=== PATIENT | male | born 1955 | race Caucasian/White ===

== ENCOUNTER 2016-08-07 19:09 | Emergency (ER) | payer MEDICARE ==
[~2016-08-07] VITALS: Ht 172.7 cm; Wt 70.0 kg
[~2016-08-07 19:09] MED LIST: CLON.1 PO; DOCU100T9 PO; GABA300C3 PO; IBUP-1116 PO; LISI-363 PO; MELO15 PO; OMEP20TA39 PO; SENN8.6T19 PO; SIMV20 PO; TAMS0.4C4 PO; TRAM50 PO; TYLE500T PO; ZANA4CAP PO
[2016-08-07 19:12] VITALS: BP 94/61; PULSE 60; RESP 20; TEMP 97.4; O2SAT 95
[2016-08-07 19:17] VITALS: BP 94/51
[2016-08-07] MEDS ORDERED: SODIUM CHLOR 0.9% 1000 ML INJ 1,000 ML IV ONE (19:24)
--- NOTE | 2016-08-07 19:29 | PD ---
HPI Chief Complaint: Altered Mental Status Time Seen by Provider: 19:29 Travel History International Travel<30 days: No Contact w/Intl Traveler<30days: No Traveled to known affect area: No History of Present Illness HPI 61-year-old male with a history of hypertension, hyperlipidemia, chronic back pain presents to the emergency room by EMS for evaluation of weakness and hypotension. Per EMS report they were called by the patient's friend. When they arrived on scene the patient was pale, diaphoretic and lethargic. Once they placed him on the stretcher they were able to get a blood pressure reading of 100/60. The patient is complaining of feeling lightheaded, weak and nauseous. He denies any chest pain, shortness of breath, difficulty breathing, vomiting, diarrhea, abdominal pain, bloody stool, black stool, numbness or tingling. The patient states that this has happened to him in the past. He states that he usually has high blood pressure, did take his blood pressure medication today, denies taking any extra pills today. States he has had 2 alcoholic beverages. Denies any drug use. No other complaints. PFSH Past Medical History Cancer: No Cardiovascular Problems: Yes (HTN) High Cholesterol: Yes Endocrine: No Gastrointestinal Disorders: Yes (GERD) Genitourinary: No Hepatitis: No Hiatal Hernia: No Hypertension: Yes Immune Disorder: No Musculoskeletal: Yes (LUMBAR PAIN, PAIN DOWN LEGS) Neurologic: No Psychiatric: No Reproductive: No Respiratory: No Immunizations Current: Yes Tetanus Vaccination: > 5 Years Influenza Vaccination: Yes Past Surgical History Abdominal Surgery: No AICD: No Body Medical Devices: NONE Cardiac Surgery: Yes (ABCESS DRAINAGE ON CHEST) Ear Surgery: No Endocrine Surgery: No Eye Surgery: No Genitourinary Surgery: No Joint Replacement: No Neurologic Surgery: Yes (spinal fusion 10/2015) Oral Surgery: No Pacemaker: No Thoracic Surgery: No Other Surgery: Yes (CYST CHEST AREA 10 YRS AGO) Social History Alcohol Use: Yes (drinks daily) Tobacco Use: Yes (SNUFF) Substance Use: No Allergies-Medications (Allergen,Severity, Reaction): Coded Allergies: Cerebyx (Verified Allergy, Severe, Itching, 08/07/16) Reported Meds & Prescriptions Reported Meds & Active Scripts Active Reported Omeprazole 20 Mg Tab 20 Mg PO DAILY Tizanidine (Tizanidine HCl) 4 Mg Tab 4 Mg PO TID Mobic (Meloxicam) 15 Mg Tab 15 Mg PO DAILY Gabapentin 600 Mg Tab 600 Mg PO TID Lisinopril 20 Mg Tab 20 Mg PO BID Simvastatin 20 Mg Tab 20 Mg PO HS Drisdol (Ergocalciferol) 50,000 Unit Cap 50,000 Units PO Q7D Advil (Ibuprofen) 200 Mg Tab 400 Mg PO Q4H PRN Review of Systems Except as stated in HPI: all other systems reviewed are Neg Physical Exam Narrative GENERAL: Well-nourished and well-developed male patient in no acute distress. SKIN: Pale, cool, diaphoretic. HEAD: Normocephalic and atraumatic. EYES: No injection, drainage, or hyphema noted. PERRLA. EOMI. ENT: No nasal drainage noted. Oropharynx is clear. NECK: Supple and the trachea is midline. CARDIOVASCULAR: Regular rate and rhythm. RESPIRATORY: Breath sounds are equal bilaterally with no accessory muscle use, wheezing, rhonchi, or crackles. GASTROINTESTINAL: Abdomen is soft, non-tender, and nondistended. MUSCULOSKELETAL: No obvious deformities, swelling, cyanosis, or ecchymosis is present throughout the upper and lower extremities. Patient has full range of motion without any signs of neurovascular compromise. NEUROLOGICAL: Awake, alert, and oriented. Normal speech. Global weakness. Cranial nerves are grossly intact. Data Data Last Documented VS Vital Signs Date Time Temp Pulse Resp B/P Pulse Ox O2 Delivery O2 Flow Rate FiO2 08/07/16 21:05 98.1 71 18 112/80 98 Room Air Orders Complete Blood Count With Diff (08/07/16 19:24) Comprehensive Metabolic Panel (08/07/16 19:24) Troponin I (08/07/16 19:24) Act Partial Throm Time (Ptt) (08/07/16 19:24) Prothrombin Time / Inr (Pt) (08/07/16 19:24) Urinalysis - C+S If Indicated (08/07/16 19:24) Chest, Single Ap (08/07/16 19:24) Blood Glucose (08/07/16 19:24) Ecg Monitoring (08/07/16 19:24) Iv Access Insert/Monitor (08/07/16 19:24) Oximetry (08/07/16 19:24) Sodium Chloride 0.9% Flush (Ns Flush) (08/07/16 19:30) Sodium Chlor 0.9% 1000 Ml Inj (Ns 1000 M (08/07/16 19:24) Type And Screen (08/07/16 19:24) Ct Brain W/O Iv Contrast(Rout) (08/07/16 19:29) B-Type Natriuretic Peptide (08/07/16 19:30) Drug Screen, Random Urine (08/07/16 19:48) Alcohol (Ethanol) (08/07/16 19:48) Electrocardiogram (08/07/16 19:21) Sodium Chlor 0.9% 1000 Ml Inj (Ns 1000 M (08/07/16 20:17) Labs Laboratory Tests Test 08/07/16 08/07/16 19:30 21:20 White Blood Count 5.3 TH/MM3 Red Blood Count 3.27 MIL/MM3 Hemoglobin 11.2 GM/DL Hematocrit 32.9 % Mean Corpuscular Volume 100.5 FL Mean Corpuscular Hemoglobin 34.3 PG Mean Corpuscular Hemoglobin 34.1 % Concent Red Cell Distribution Width 13.5 % Platelet Count 151 TH/MM3 Mean Platelet Volume 8.4 FL Neutrophils (%) (Auto) 74.9 % Lymphocytes (%) (Auto) 11.9 % Monocytes (%) (Auto) 12.6 % Eosinophils (%) (Auto) 0.4 % Basophils (%) (Auto) 0.2 % Neutrophils # (Auto) 3.9 TH/MM3 Lymphocytes # (Auto) 0.6 TH/MM3 Monocytes # (Auto) 0.7 TH/MM3 Eosinophils # (Auto) 0.0 TH/MM3 Basophils # (Auto) 0.0 TH/MM3 CBC Comment AUTO DIFF Differential Comment AUTO DIFF CONFIRMED Platelet Estimate LOW Platelet Morphology Comment NORMAL Prothrombin Time 10.7 SEC Prothromb Time International 1.0 RATIO Ratio Activated Partial 26.1 SEC Thromboplast Time Sodium Level 137 MEQ/L Potassium Level 3.4 MEQ/L Chloride Level 100 MEQ/L Carbon Dioxide Level 22.2 MEQ/L Anion Gap 15 MEQ/L Blood Urea Nitrogen 9 MG/DL Creatinine 1.09 MG/DL Estimat Glomerular Filtration 68 ML/MIN Rate Random Glucose 111 MG/DL Calcium Level 7.7 MG/DL Total Bilirubin 0.4 MG/DL Aspartate Amino Transf 89 U/L (AST/SGOT) Alanine Aminotransferase 52 U/L (ALT/SGPT) Alkaline Phosphatase 65 U/L Troponin I LESS THAN 0.02 NG/ML B-Type Natriuretic Peptide 14 PG/ML Total Protein 6.4 GM/DL Albumin 3.0 GM/DL Ethyl Alcohol Level 76 MG/DL Blood Type A POSITIVE Antibody Screen NEGATIVE Urine Color LIGHT-YELLOW Urine Turbidity CLEAR Urine pH 6.5 Urine Specific [place] 1.004 Urine Protein NEG mg/dL Urine Glucose (UA) NEG mg/dL Urine Ketones NEG mg/dL Urine Occult Blood NEG Urine Nitrite NEG Urine Bilirubin NEG Urine Urobilinogen LESS THAN 2.0 MG/DL Urine Leukocyte Esterase NEG Urine WBC LESS THAN 1 /hpf Urine Mucus FEW /lpf Microscopic Urinalysis Comment CULT NOT INDICATED MDM Medical Decision Making Medical Screen Exam Complete: Yes Emergency Medical Condition: Yes Differential Diagnosis Dehydration versus ACS versus heart failure versus renal failure Narrative Course 61-year-old male is brought to the emergency department for evaluation of generalized weakness, lethargy and hypotension. Patient's blood pressure is 94/ 61. Otherwise vital signs are within normal limits. IV access is obtained, labs were drawn and sent. Patient is given IV fluids. EKG shows sinus bradycardia with a ventricular rate of 55 bpm, no acute ST elevations or depressions. CBC shows mild anemia with a hemoglobin of 11.2, 32.9. CMP shows mild hypokalemia with potassium of 3.4. Otherwise unremarkable. Troponin is less than 0.02. EtOH is 76. BNP is 14. Urinalysis shows few mucus. Patient has remained stable and without complaint while here in the emergency department. His blood pressure has improved to 112/80. He reports improvement of symptoms. The patient is now stating that he did take his muscle relaxer and gabapentin shortly before the symptoms started. I suspect that the mixture of alcohol and sedating medications is what caused his syncope and low blood pressure. He is stable for discharge. Advised to follow-up with his PCP. I discussed the case with my attending physician Dr. Oneill who is aware of the patients history, physical examination findings, and treatment plan. Diagnosis Primary Impression: Syncope Qualified Code: R55 - Syncope, unspecified syncope type Referrals: Primary Care Physician Patient Instructions: General Instructions, Syncope (ED) Additional Instructions: Follow-up with your Primary Care Physician. Return to the ED for any acute worsening of symptoms. Med/Other Pt SpecificInfo: No Change to Meds Disposition: 01 DISCHARGE HOME Condition: Stable Alicia Bruce Aug 07, 2016 19:29
[2016-08-07] MEDS ORDERED: SODIUM CHLORIDE 0.9% FLUSH 5 ML FLUSH IVF PRN (19:30)
[2016-08-07 20:02] LABS: AUTOMATED NEUTROPHIL # 3.9 TH/MM3 (1.8-7.7); BASOPHIL % 0.2 % (0.0-2.0); EOSINOPHIL % 0.4 % (0.0-4.0); HEMATOCRIT 32.9 % (39.0-51.0); LYMPH % 11.9 % (9.0-44.0); LYMPHOCYTE # 0.6 TH/MM3 (1.0-4.8); MEAN CELL VOLUME 100.5 FL (80.0-100.0); MEAN CORPUSCULAR HEMOGLOBIN 34.3 PG (27.0-34.0); MEAN CORPUSCULAR HGB CONC 34.1 % (32.0-36.0); MONO % 12.6 % (0.0-8.0); NEUT % 74.9 % (16.0-70.0); PLATELET COUNT 151 TH/MM3 (150-450); RED BLOOD COUNT 3.27 MIL/MM3 (4.50-5.90); RED CELL DISTRIBUTION WIDTH 13.5 % (11.6-17.2); WHITE BLOOD COUNT 5.3 TH/MM3 (4.0-11.0)
[2016-08-07 20:03] LABS: HEMO FLAGS AUTO DIFF
[2016-08-07] MEDS ORDERED: SODIUM CHLOR 0.9% 1000 ML INJ 1,000 ML IV SCH (20:17)
[2016-08-07 20:19] LABS: ANION GAP 15 MEQ/L (5-15); APTT (PATIENT) 26.1 SEC (24.3-30.1); AST (GOT) 89 U/L (15-37); BICARBONATE 22.2 MEQ/L (21.0-32.0); BLOOD UREA NITROGEN 9 MG/DL (7-18); CHLORIDE 100 MEQ/L (98-107); GLOMERULAR FILTRATION RATE 68 ML/MIN (>89); POTASSIUM 3.4 MEQ/L (3.5-5.1); PROTHROMBIN TIME - PATIENT 10.7 SEC (9.8-11.6); SODIUM (NA) 137 MEQ/L (136-145)
[2016-08-07 20:23] LABS: ALKALINE PHOSPHATASE 65 U/L (45-117); ALT (GPT) 52 U/L (12-78); TOTAL BILIRUBIN ADULT 0.4 MG/DL (0.2-1.0)
--- NOTE | 2016-08-07 20:24 | RADRPT ---
EXAM DATE/TIME: 08/07/2016 19:52 [facility] COMPARISON: CHEST SINGLE AP, January 08, 2016, 18:22. INDICATIONS : Syncopal episode. MEDICAL HISTORY : Hypertension. SURGICAL HISTORY : Spinal fusion. ENCOUNTER: Initial ACUITY: 1 day PAIN SCORE: Non-responsive. LOCATION: Bilateral chest FINDINGS: Cardiomegaly. Clear lungs. Osseous structures are intact. CONCLUSION: No acute disease. Marcelo Sotelo MD on August 07, 2016 at 20:23 Board Certified Radiologist. This report was verified electronically.
[2016-08-07 20:31] LABS: PLATELET ESTIMATE SMEAR LOW (NORMAL); PLATELET MORPHOLOGY NORMAL (NORMAL); SCAN/DIFF AUTO DIFF CONFIRMED
[2016-08-07] MEDS ORDERED: GABA600T PO (20:35)
[2016-08-07] MEDS ORDERED: LISI-515 PO (20:35)
[2016-08-07] MEDS ORDERED: TIZA4TAB PO (20:35)
[2016-08-07] MEDS ORDERED: DRIS50002 PO (20:35)
[2016-08-07] MEDS ORDERED: MOBI15TA PO (20:35)
[2016-08-07] MEDS ORDERED: SIMV20TA PO (20:35)
[2016-08-07] MEDS ORDERED: IBUP-988 PO (20:35)
[2016-08-07] MEDS ORDERED: OMEP20TA PO (20:36)
--- NOTE | 2016-08-07 20:41 | RADRPT ---
EXAM DATE/TIME: 08/07/2016 20:24 [facility] COMPARISON: CT BRAIN W/O CONTRAST, December 08, 2015, 17:49. INDICATIONS : Altered mental status. RADIATION DOSE: 39.05 CTDIvol (mGy) MEDICAL HISTORY : Cardiovascular disease. Hypertension. SURGICAL HISTORY : None. ENCOUNTER: Initial ACUITY: 1 day PAIN SCALE: 0/10 LOCATION: cranial TECHNIQUE: Multiple contiguous axial images were obtained of the head. Using automated exposure control and adj ustment of the mA and/or kV according to patient size, radiation dose was kept as low as reasonably a chievable to obtain optimal diagnostic quality images. FINDINGS: Stable mild periventricular white matter disease. No hemorrhage, acute infarct, or mass. Air-fluid le vels in the maxillary sinuses. No fractures. CONCLUSION: Stable appearance of the brain. Marcelo Sotelo MD on August 07, 2016 at 20:39 Board Certified Radiologist. This report was verified electronically.
[2016-08-07 21:05] VITALS: BP 112/80; PULSE 71; RESP 18; TEMP 98.1; O2SAT 98
[2016-08-07 21:40] LABS: BLOOD, URINE NEG (NEG); COMMENT (UR) CULT NOT INDICATED; CULTURE IF INDICATED CULT NOT INDICATED; GLUCOSE,URINE NEG (NEG); KETONE, URINE NEG (NEG); MUCUS URINE FEW /lpf (OCC); NITRITE,URINE NEG (NEG); PH, URINE 6.5 (5.0-8.5); URINE COLOR LIGHT-YELLOW (YELLW/STRAW)
[2016-08-07 21:43] LABS: AMPHETAMINE, URINE NEG (NEG); BARBITURATES, URINE NEG (NEG); COCAINE, URINE NEG (NEG)
--- NOTE | 2016-08-08 13:57 | EKG ---
Date Performed: 08/07/2016 Time Performed: 19:21:24 PTAGE: 61 years EKG: SINUS BRADYCARDIA MODERATE T-WAVE ABNORMALITY, CONSIDER LATERAL ISCHEMIA ABNORMAL ECG PREVIOUS TRACING : 01/08/2016 18.50 DOCTOR: Gordy Alcala Interpretating Date/Time 08/08/2016 13:52:29
== END 2016-08-07 23:04 | disposition home or self-care (01) ==
LOC: NEPE 19:09
DX: R55 Syncope and collapse (principal); I95.9 Hypotension, unspecified; R11.0 Nausea; D64.9 Anemia, unspecified; E87.6 Hypokalemia; R94.31 Abnormal electrocardiogram [ECG] [EKG]; I10 Essential (primary) hypertension; E78.5 Hyperlipidemia, unspecified; Z72.0 Tobacco use; Z87.39 Personal history of other diseases of the musculoskeletal system and connective tissue; Z87.19 Personal history of other diseases of the digestive system
CPT/HCPCS: 70450; 71010; 80053; 80307; 81001; 83880; 84484; 85025; 85610; 85730; 86850; 86900; 86901; 93005; 96360; 99285; J7030

== ENCOUNTER 2016-09-09 10:54 | Emergency (ER) | payer MEDICARE ==
[~2016-09-09] VITALS: Ht 175.3 cm; Wt 80.0 kg
[~2016-09-09 10:54] MED LIST changes: -CLON.1 PO; -DOCU100T9 PO; +DRIS50002 PO; -GABA300C3 PO; +GABA600T PO; -IBUP-1116 PO; +IBUP-988 PO; -LISI-363 PO; +LISI-515 PO; -MELO15 PO; +MOBI15TA PO; +OMEP20TA PO; -OMEP20TA39 PO; -SENN8.6T19 PO; -SIMV20 PO; +SIMV20TA PO; -TAMS0.4C4 PO; +TIZA4TAB PO; -TRAM50 PO; -TYLE500T PO; -ZANA4CAP PO
[2016-09-09 10:56] VITALS: BP 205/120; PULSE 106; RESP 20; TEMP 98.4; O2SAT 98
--- NOTE | 2016-09-09 11:30 | PD ---
HPI Chief Complaint: Injury Time Seen by Provider: 11:21 Travel History International Travel<30 days: No Contact w/Intl Traveler<30days: No Traveled to known affect area: No History of Present Illness HPI Patient is a 61-year-old male presents emergency Department with left ankle injury. Patient was catching baitfish yesterday when he slipped, twisting his left ankle. Notes pain to the lateral aspect of the left ankle with increasing swelling today. He is able ambulate, albeit with some pain and prefers to ambulate with some assistance. No numbness or tingling. PFSH Past Medical History Cancer: No Cardiovascular Problems: Yes High Cholesterol: Yes Endocrine: No Gastrointestinal Disorders: Yes (GERD) Genitourinary: No Hepatitis: No Hiatal Hernia: No Hypertension: Yes Immune Disorder: No Musculoskeletal: Yes (LUMBAR PAIN, PAIN DOWN LEGS) Neurologic: No Psychiatric: No Reproductive: No Respiratory: No Immunizations Current: Yes Past Surgical History Abdominal Surgery: No AICD: No Body Medical Devices: NONE Cardiac Surgery: Yes (ABCESS DRAINAGE ON CHEST) Ear Surgery: No Endocrine Surgery: No Eye Surgery: No Genitourinary Surgery: No Joint Replacement: No Neurologic Surgery: Yes (spinal fusion 10/2015) Oral Surgery: No Pacemaker: No Thoracic Surgery: No Other Surgery: Yes (CYST CHEST AREA 10 YRS AGO) Social History Alcohol Use: Yes (drinks daily) Tobacco Use: Yes (SNUFF) Substance Use: No Allergies-Medications (Allergen,Severity, Reaction): Coded Allergies: Cerebyx (Verified Allergy, Severe, Itching, 08/07/16) Reported Meds & Prescriptions Reported Meds & Active Scripts Active Reported Omeprazole 20 Mg Tab 20 Mg PO DAILY Tizanidine (Tizanidine HCl) 4 Mg Tab 4 Mg PO TID Mobic (Meloxicam) 15 Mg Tab 15 Mg PO DAILY Gabapentin 600 Mg Tab 600 Mg PO TID Lisinopril 20 Mg Tab 20 Mg PO BID Simvastatin 20 Mg Tab 20 Mg PO HS Advil (Ibuprofen) 200 Mg Tab 400 Mg PO Q4H PRN Review of Systems Except as stated in HPI: all other systems reviewed are Neg Physical Exam Narrative GENERAL: Well-appearing male in no acute distress SKIN: Focused skin assessment warm/dry. HEAD: Normocephalic. EYES: No scleral icterus. No injection or drainage. ENT: Mucous membranes pink and moist. CARDIOVASCULAR: Regular rate and rhythm. RESPIRATORY: No accessory muscle use. MUSCULOSKELETAL: Left ankle with swelling over the lateral malleolus and tenderness to palpation over the inferior malleolus. Patient is able to range the ankle fully albeit with pain. No posterior malleoli, medial malleoli, calcaneal or foot pain. Sensation intact. Strength intact. NEUROLOGICAL: Awake and alert. Normal speech. PSYCHIATRIC: Appropriate mood and affect; insight and judgment normal. Data Data Last Documented VS Vital Signs Date Time Temp Pulse Resp B/P Pulse Ox O2 Delivery O2 Flow Rate FiO2 09/09/16 10:56 98.4 106 20 205/120 98 Room Air Orders Ankle, Complete ([id number]) (09/09/16 ) [facility] Medical Decision Making Medical Screen Exam Complete: Yes Emergency Medical Condition: Yes Medical Record Reviewed: Yes Differential Diagnosis 61-year-old male here with left ankle injury. Differential includes ankle sprain, ankle fracture, distal fibular fracture, less likely dislocation clinically. Narrative Course X-ray of the left ankle was obtained and by my read shows no obvious evidence of fracture. Patient was reassured and given instructions for ankle sprain and discharged home. Diagnosis Primary Impression: Left ankle sprain Qualified Code: S93.402A - Sprain of left ankle, unspecified ligament, initial encounter Referrals: Primary Care Physician as needed Additional Instructions: Tylenol, ibuprofen, ice as needed for pain. Med/Other Pt SpecificInfo: No Change to Meds Disposition: 01 DISCHARGE HOME Condition: Stable Sravani Brush MD Sep 09, 2016 11:29
--- NOTE | 2016-09-09 11:51 | RADRPT ---
EXAM DATE/TIME: 09/09/2016 11:26 [facility] COMPARISON: No previous studies available for comparison. INDICATIONS : Fell in a hole yesterday. MEDICAL HISTORY : None. SURGICAL HISTORY : None. ENCOUNTER: Initial ACUITY: 1 day PAIN SCORE: 10/10 LOCATION: Left ankle FINDINGS: No definite fractures, or dislocations are identified. No definite lytic or sclerotic lesion is seen . The joint spaces are well maintained. There are hypertrophic changes involving the talofibular erin nt. IMPRESSION: No definite fracture is identified for technique. KEric Jameson MD on September 09, 2016 at 11:49 Board Certified Radiologist. This report was verified electronically.
== END 2016-09-09 13:09 | disposition home or self-care (01) ==
LOC: NEPD 10:54
DX: S93.402A Sprain of unspecified ligament of left ankle, initial encounter (principal); I10 Essential (primary) hypertension; F17.290 Nicotine dependence, other tobacco product, uncomplicated; W01.0XXA Fall on same level from slipping, tripping and stumbling without subsequent striking against object, initial encounter; Y93.89 Activity, other specified; Y92.89 Other specified places as the place of occurrence of the external cause; Z91.81 History of falling
CPT/HCPCS: 73610; 99283

== ENCOUNTER 2017-03-12 13:18 | Emergency (ER) | payer MEDICARE ==
[~2017-03-12] VITALS: Ht 175.3 cm; Wt 75.0 kg
[~2017-03-12 13:18] MED LIST changes: -DRIS50002 PO
[2017-03-12 13:19] VITALS: BP 127/78; PULSE 101; RESP 20; TEMP 98.5; O2SAT 98
[2017-03-12] MEDS ORDERED: BACT800T5 PO (13:59)
[2017-03-12] MEDS ORDERED: CEPH-460 PO (13:59)
[2017-03-12] MEDS ORDERED: PERM5CRE11 TOPICAL (13:59)
--- NOTE | 2017-03-12 13:59 | PD ---
HPI Chief Complaint: Skin Problem Time Seen by Provider: 13:57 Travel History International Travel<30 days: No Contact w/Intl Traveler<30days: No Traveled to known affect area: No History of Present Illness HPI 61-year-old male presents to the emergency Department with complaint of generalized itchy rash 3 weeks. Denies fever, vomiting. Denies new exposures to lotions, soaps, detergents, medications, foods, environmental exposures. His girlfriend was just seen previously and treated for the same rash. Has tried [id number] antibiotic ointment with no relief of symptoms. Symptoms are mild in severity. Reports alcohol use daily. Patient smells of EtOH. Has no other medical complaints. Allergies to fosphenytoin. No other modifying factors or associated signs and symptoms. PFSH Past Medical History Cancer: No Cardiovascular Problems: Yes High Cholesterol: Yes Endocrine: No Gastrointestinal Disorders: Yes (GERD) Genitourinary: No Hepatitis: No Hiatal Hernia: No Hypertension: Yes Immune Disorder: No Musculoskeletal: Yes (LUMBAR PAIN, PAIN DOWN LEGS) Neurologic: No Psychiatric: No Reproductive: No Respiratory: No Immunizations Current: Yes Past Surgical History Abdominal Surgery: No AICD: No Body Medical Devices: NONE Cardiac Surgery: Yes (ABCESS DRAINAGE ON CHEST) Ear Surgery: No Endocrine Surgery: No Eye Surgery: No Genitourinary Surgery: No Joint Replacement: No Neurologic Surgery: Yes (spinal fusion 10/2015) Oral Surgery: No Pacemaker: No Thoracic Surgery: No Other Surgery: Yes (CYST CHEST AREA 10 YRS AGO) Social History Alcohol Use: Yes (drinks daily) Tobacco Use: Yes (SNUFF) Substance Use: No Allergies-Medications (Allergen,Severity, Reaction): Coded Allergies: fosphenytoin (Unverified Allergy, Severe, Itching, 01/07/17) Reported Meds & Prescriptions Reported Meds & Active Scripts Active Elimite Topical (Permethrin) 5% Cream 1 Applic TOPICAL ONCE Keflex (Cephalexin) 500 Mg Cap 500 Mg PO Q6H 10 Days Bactrim DS (Sulfamethoxazole-Trimethoprim) 800-160 Mg Tab 1 Tab PO BID 10 Days Reported Omeprazole 20 Mg Tab 20 Mg PO DAILY Tizanidine (Tizanidine HCl) 4 Mg Tab 4 Mg PO TID Mobic (Meloxicam) 15 Mg Tab 15 Mg PO DAILY Gabapentin 600 Mg Tab 600 Mg PO TID Lisinopril 20 Mg Tab 20 Mg PO BID Simvastatin 20 Mg Tab 20 Mg PO HS Advil (Ibuprofen) 200 Mg Tab 400 Mg PO Q4H PRN Review of Systems Except as stated in HPI: all other systems reviewed are Neg Physical Exam Narrative GENERAL: Well-nourished, well-developed male patient, in no acute distress; smells of EtOH; afebrile, nontoxic-appearing SKIN: Warm and dry. Generalized erythremic pimple-like rash to waistline of abdomen and back; some areas appear excoriated. No areas with cellulitic process noted. HEAD: Atraumatic. Normocephalic. EYES: Pupils equal and round. No scleral icterus. No injection or drainage. ENT: Mucosa pink and moist. Airway patent. NECK: Trachea midline. CARDIOVASCULAR: Regular rate. RESPIRATORY: No accessory muscle use. GASTROINTESTINAL: Flat. MUSCULOSKELETAL: No obvious deformities. No clubbing. No cyanosis. No edema. NEUROLOGICAL: Awake and alert. Oriented 3. No obvious cranial nerve deficits. Motor grossly within normal limits. Normal speech. PSYCHIATRIC: Appropriate mood and affect; insight and judgment normal. Data Data Last Documented VS Vital Signs Date Time Temp Pulse Resp B/P (MAP) Pulse Ox O2 Delivery O2 Flow Rate FiO2 03/12/17 13:19 98.5 101 20 127/78 (94) 98 Room Air Orders Orders Ed Discharge Order (03/12/17 13:59) [facility] Medical Decision Making Medical Screen Exam Complete: Yes Emergency Medical Condition: Yes Medical Record Reviewed: Yes Differential Diagnosis Bedbug bites, scabies, MRSA, MSSA Narrative Course 61-year-old male physical exam consistent with a rash and other nonspecific skin eruption. Patient is afebrile and nontoxic-appearing. He denies fever, vomiting. Patient smells of EtOH. I will prescribe Elimite cream and treat the patient empirically for possible skin infection with Keflex and Bactrim. Instructed patient to follow-up with dermatology. Keflex, Bactrim, Elimite cream prescribed for home. Instructed patient to follow up with primary care provider. Patient verbalizes understanding and agreement with treatment plan. Patient is medically cleared and stable for discharge. Discussed reasons to return to the emergency department. Patient agrees with treatment plan. The patients vital signs are stable and the patient is stable for outpatient follow- up and treatment. Patient discharged home, stable and in no acute distress. Diagnosis Primary Impression: Rash and other nonspecific skin eruption Referrals: [facility] Concierge Receptionist Primary Care Physician Patient Instructions: Acute Rash (ED), General Instructions, Scabies (ED) Additional Instructions: Complete full course of antibiotics Warm compresses to the affected area Keep area clean and dry Ibuprofen or Tylenol as directed and as needed for pain and inflammation Follow-up with primary care provider Return to emergency department immediately with worsening of symptoms Med/Other Pt SpecificInfo: Prescription(s) given Scripts Permethrin Topical (Elimite Topical) 5% Cream 1 APPLIC TOPICAL ONCE for Scabies, #1 TUBE 1 Refill Prov: Alicia Nesbitt 03/12/17 Cephalexin (Keflex) 500 Mg Cap 500 MG PO Q6H for Infection for 10 Days, #40 CAP 0 Refills Prov: Alicia Nesbitt 03/12/17 Sulfamethoxazole-Trimethoprim (Bactrim DS) 800-160 Mg Tab 1 TAB PO BID for Infection for 10 Days, #20 TAB 0 Refills Prov: Alicia Nesbitt 03/12/17 Disposition: 01 DISCHARGE HOME Condition: Stable Alicia Nesbitt Mar 12, 2017 13:59
== END 2017-03-12 14:45 | disposition home or self-care (01) ==
LOC: NEPK 13:18
DX: R21 Rash and other nonspecific skin eruption (principal); L29.9 Pruritus, unspecified; I10 Essential (primary) hypertension; E78.00 Pure hypercholesterolemia, unspecified; Z72.0 Tobacco use; Z86.79 Personal history of other diseases of the circulatory system; Z87.19 Personal history of other diseases of the digestive system; Z87.39 Personal history of other diseases of the musculoskeletal system and connective tissue
CPT/HCPCS: 99284

== ENCOUNTER 2017-05-07 10:53 | Emergency (ER) | payer MEDICARE ==
[~2017-05-07] VITALS: Ht 175.3 cm; Wt 75.0 kg
[~2017-05-07 10:53] MED LIST changes: +BACT800T5 PO; +CEPH-460 PO; -GABA600T PO; -IBUP-988 PO; -MOBI15TA PO; -OMEP20TA PO; +PERM5CRE11 TOPICAL; -TIZA4TAB PO
[2017-05-07 10:55] VITALS: BP 166/88; PULSE 114; RESP 14; TEMP 98.2; O2SAT 98
--- NOTE | 2017-05-07 11:24 | PD ---
HPI Chief Complaint: Pain: Acute or Chronic Time Seen by Provider: 11:21 Travel History International Travel<30 days: No Contact w/Intl Traveler<30days: No Traveled to known affect area: No History of Present Illness HPI 62 YO M with PMH of chronic back pain and sciatica presents to the ED for evaluation of 03/04 left knee pain. Worsened by weightbearing and certain motions. Patient can identify no acute injury. He denies numbness, tingling, weakness, limitations to range of motion of the extremity. He denies saddle anesthesia or urinary/fecal incontinence. He normally ambulates with a cane. No treatment attempted at home. PFSH Past Medical History Cancer: No Cardiovascular Problems: Yes High Cholesterol: Yes Endocrine: No Gastrointestinal Disorders: Yes (GERD) Genitourinary: No Hepatitis: No Hiatal Hernia: No Hypertension: Yes Immune Disorder: No Musculoskeletal: Yes (LUMBAR PAIN, PAIN DOWN LEGS) Neurologic: No Psychiatric: No Reproductive: No Respiratory: No Immunizations Current: Yes Past Surgical History Abdominal Surgery: No AICD: No Body Medical Devices: NONE Cardiac Surgery: Yes (ABCESS DRAINAGE ON CHEST) Ear Surgery: No Endocrine Surgery: No Eye Surgery: No Genitourinary Surgery: No Joint Replacement: No Neurologic Surgery: Yes (spinal fusion 10/2015) Oral Surgery: No Pacemaker: No Thoracic Surgery: No Other Surgery: Yes (CYST CHEST AREA 10 YRS AGO) Social History Alcohol Use: Yes (drinks daily) Tobacco Use: Yes (SNUFF) Substance Use: No Allergies-Medications (Allergen,Severity, Reaction): Coded Allergies: fosphenytoin (Unverified Allergy, Severe, Itching, 05/07/17) Reported Meds & Prescriptions Reported Meds & Active Scripts Active Ibuprofen 600 Mg Tab 600 Mg PO Q8H PRN Reported Lisinopril 20 Mg Tab 20 Mg PO BID Simvastatin 20 Mg Tab 20 Mg PO HS Review of Systems Except as stated in HPI: all other systems reviewed are Neg Physical Exam Narrative GENERAL: Well-nourished, well-developed white male in no acute distress. SKIN: Focused skin assessment warm/dry. HEAD: Normocephalic. EYES: No scleral icterus. No injection or drainage. NECK: Supple, trachea midline. No JVD or lymphadenopathy. CARDIOVASCULAR: Regular rate and rhythm without murmurs, gallops, or rubs. RESPIRATORY: Breath sounds equal bilaterally. No accessory muscle use. GASTROINTESTINAL: Abdomen soft, non-tender, nondistended. MUSCULOSKELETAL: No cyanosis, or edema. Focused left lower extremity exam: 2+ DP pulse. No erythema, edema, warmth noted. Tenderness to palpation of the medial compartment of the anterior knee. Patient can extend beyond 0 and flex beyond 90. 5/5 strength of dorsal flexion, plantar flexion. Homans sign negative. Her vascular intact. BACK: Nontender without obvious deformity. No CVA tenderness. Data Data Last Documented VS Vital Signs Date Time Temp Pulse Resp B/P (MAP) Pulse Ox O2 Delivery O2 Flow Rate FiO2 05/07/17 12:07 108 16 155/96 (115) 97 Room Air 05/07/17 10:55 98.2 Orders Orders Knee, Complete (4vws) (05/07/17 11:20) Ice/Cold Pack (05/07/17 11:20) Tramadol (Ultram) (05/07/17 11:30) Tramadol (Ultram) (05/07/17 11:39) Ed Discharge Order (05/07/17 12:24) MDM Medical Decision Making Medical Screen Exam Complete: Yes Emergency Medical Condition: Yes Differential Diagnosis Osteoarthritis versus chronic knee pain versus effusion versus sprain versus other Narrative Course 62 YO M with PMH of chronic back pain and sciatica presents to the ED for evaluation of 10 left knee pain. Worsened by weightbearing and certain motions. Patient can identify no acute injury. He denies numbness, tingling, weakness, limitations to range of motion of the extremity. He denies saddle anesthesia or urinary/fecal incontinence. He normally ambulates with a cane. Vitals reviewed. Physical exam reveals a nontoxic-appearing white male in no acute distress. He does have some tenderness of the anterior medial aspect of the left knee but the exam is otherwise unremarkable. X-ray of the knee reveals no acute bony injury. Radiology read. I suspect this is referred pain from his chronic back issues. He is provided a brief course of anti- inflammatories. He is instructed to follow-up with his neurologist, pain management. He indicated understanding of the instructions and is agreeable with the care plan. He is stable and discharged home. Diagnosis Primary Impression: Left medial knee pain Referrals: Erick Rushing MD Patient Instructions: General Instructions, Knee Pain (ED) Additional Instructions: Rest, ice, elevate the extremity. Apply ice no longer than 10-15 minutes per hour a few times a day. 600 mg ibuprofen up to 3 times a day as needed for pain. Return to normal, gentle activity as tolerated. No excessive use, running or jumping until evaluated by orthopedics. Follow up with orthopedist or your primary care provider. Return to the ED for any urgent or emergent medical condition. Med/Other Pt SpecificInfo: Prescription(s) given Scripts Ibuprofen (Ibuprofen) 600 Mg Tab 600 MG PO Q8H Y for PAIN, #15 TAB 0 Refills Prov: Dayna Farr DO 05/07/17 Disposition: 01 DISCHARGE HOME Condition: Stable María Angulo May 07, 2017 11:24
[2017-05-07] MEDS ORDERED: traMADol HCL 50 MG TAB PO ONE (11:30)
[2017-05-07] MEDS ORDERED: traMADol HCL 50 MG TAB ONE (11:39)
--- NOTE | 2017-05-07 12:06 | RADRPT ---
EXAM DATE/TIME: 05/07/2017 11:50 [facility] COMPARISON: No previous studies available for comparison. INDICATIONS : Left knee pain x 2 weeks, no known injury. MEDICAL HISTORY : None. SURGICAL HISTORY : None. ENCOUNTER: Initial ACUITY: 2 weeks PAIN SCORE: 10/10 LOCATION: Left medial knee FINDINGS: Four view examination of the left knee demonstrates no evidence of fracture or dislocation. Bony min eralization is normal. The articular surfaces are intact. The suprapatellar soft tissues have a nor mal configuration. CONCLUSION: No acute disease. Tushar Hahn MD on May 07, 2017 at 12:03 Board Certified Radiologist. This report was verified electronically.
[2017-05-07 12:07] VITALS: BP 155/96; PULSE 108; RESP 16; O2SAT 97
[2017-05-07] MEDS ORDERED: IBUP-232 PO (12:24)
== END 2017-05-07 12:51 | disposition home or self-care (01) ==
LOC: NEPK 10:53
DX: M25.562 Pain in left knee (principal); M54.30 Sciatica, unspecified side; R07.9 Chest pain, unspecified; E78.00 Pure hypercholesterolemia, unspecified; K21.9 Gastro-esophageal reflux disease without esophagitis; I10 Essential (primary) hypertension; F17.290 Nicotine dependence, other tobacco product, uncomplicated
CPT/HCPCS: 73564; 99283

== ENCOUNTER 2017-11-18 10:57 | Emergency (ER) | payer MEDICARE, OTHER ==
[~2017-11-18] VITALS: Ht 175.3 cm; Wt 75.0 kg
[~2017-11-18 10:57] MED LIST changes: -BACT800T5 PO; -CEPH-460 PO; +IBUP-232 PO; -PERM5CRE11 TOPICAL
[2017-11-18 11:03] VITALS: BP 158/84; PULSE 86; RESP 14; TEMP 98.8; O2SAT 98
[2017-11-18] MEDS ORDERED: SODIUM CHLOR 0.9% 1000 ML INJ 1,000 ML IV SCH (12:24)
--- NOTE | 2017-11-18 12:28 | PD ---
HPI Chief Complaint: Skin Problem Time Seen by Provider: 12:11 Travel History International Travel<30 days: No Contact w/Intl Traveler<30days: No Traveled to known affect area: No History of Present Illness HPI 62-year-old male presents to emergency department with complaint of a "insect bite" to his right calf 2 weeks. Says it opened up and started draining today. Reports area is painful. Denies fever, vomiting. Reports paresthesias of both feet that is not new and unchanged. Denies loss of sensation, decreased range of motion, decreased strength to the affected extremity. Has been taking ibuprofen without any relief of symptoms. Rates pain 8/10. Pain is constant. Aggravated with palpation to the area. No known relieving factors. Unknown tetanus status. Denies history of MRSA. Primary care provider is [facility]. Allergies to fosphenytoin. denies significant past medical history. Has no other medical complaints. No other modifying factors or associated signs and symptoms. PFSH Past Medical History Cancer: No Cardiovascular Problems: Yes High Cholesterol: Yes Endocrine: No Gastrointestinal Disorders: Yes (GERD) Genitourinary: No Hepatitis: No Hiatal Hernia: No Hypertension: Yes Immune Disorder: No Musculoskeletal: Yes (LUMBAR PAIN, PAIN DOWN LEGS) Neurologic: No Psychiatric: No Reproductive: No Respiratory: No Immunizations Current: Yes Past Surgical History Abdominal Surgery: No AICD: No Body Medical Devices: NONE Cardiac Surgery: Yes (ABCESS DRAINAGE ON CHEST) Ear Surgery: No Endocrine Surgery: No Eye Surgery: No Genitourinary Surgery: No Joint Replacement: No Neurologic Surgery: Yes (spinal fusion 10/2015) Oral Surgery: No Pacemaker: No Thoracic Surgery: No Other Surgery: Yes (CYST CHEST AREA 10 YRS AGO) Social History Alcohol Use: Yes (drinks daily) Tobacco Use: Yes (SNUFF) Substance Use: No Allergies-Medications (Allergen,Severity, Reaction): Coded Allergies: fosphenytoin (Unverified Allergy, Severe, Itching, 11/18/17) Reported Meds & Prescriptions Reported Meds & Active Scripts Active Ibuprofen 800 Mg Tab 800 Mg PO Q6HR PRN Clindamycin (Clindamycin HCl) 150 Mg Cap 450 Mg PO Q6H 10 Days Ibuprofen 600 Mg Tab 600 Mg PO Q8H PRN Reported Lisinopril 20 Mg Tab 20 Mg PO BID Simvastatin 20 Mg Tab 20 Mg PO HS Review of Systems Except as stated in HPI: all other systems reviewed are Neg Physical Exam Narrative GENERAL: Well-nourished, well-developed male patient, in no acute distress; afebrile, nontoxic-appearing SKIN: There is an indurated area to the right calf that is open and with minimal amount of serosanguineous drainage; no fluctuance. There is a zone of inflammation around it and there is lymphangitis that streaks up the anterior aspect of the knee and thigh. Right groin lymphadenopathy palpated. HEAD: Atraumatic. Normocephalic. EYES: Pupils equal and round. No scleral icterus. No injection or drainage. ENT: Mucosa pink and moist. Airway patent. NECK: Trachea midline. CARDIOVASCULAR: Regular rate. RESPIRATORY: No accessory muscle use. GASTROINTESTINAL: Flat. MUSCULOSKELETAL: No obvious deformities. No clubbing. No cyanosis. No edema. NEUROLOGICAL: Awake and alert. Oriented 3. No obvious cranial nerve deficits. Motor grossly within normal limits. Normal speech. PSYCHIATRIC: Appropriate mood and affect; insight and judgment normal. Data Data Last Documented VS Vital Signs Date Time Temp Pulse Resp B/P (MAP) Pulse Ox O2 Delivery O2 Flow Rate FiO2 11/18/17 11:03 98.8 86 14 158/84 (108) 98 Orders Orders Basic Metabolic Panel (Bmp) (11/18/17 12:20) Complete Blood Count With Diff (11/18/17 12:20) Iv Access Insert/Monitor (11/18/17 12:20) Sodium Chloride 0.9% Flush (Ns Flush) (11/18/17 12:30) Lactic Acid (11/18/17 12:20) Blood Culture (11/18/17 12:20) Wound Culture And Gram Stain (11/18/17 12:20) Clindamycin 600 Mg/Ns Premix (Cleocin 60 (11/18/17 12:30) Tetanus/Diphtheria Tox Adult (Tetanus/Di (11/18/17 12:30) Sodium Chlor 0.9% 1000 Ml Inj (Ns 1000 M (11/18/17 12:24) Ketorolac Inj (Toradol Inj) (11/18/17 12:30) Ed Discharge Order (11/18/17 14:16) Labs Laboratory Tests Test 11/18/17 12:55 White Blood Count 9.3 TH/MM3 Red Blood Count 4.53 MIL/MM3 Hemoglobin 15.0 GM/DL Hematocrit 44.6 % Mean Corpuscular Volume 98.3 FL Mean Corpuscular Hemoglobin 33.0 PG Mean Corpuscular Hemoglobin Concent 33.6 % Red Cell Distribution Width 13.1 % Platelet Count 282 TH/MM3 Mean Platelet Volume 8.1 FL Neutrophils (%) (Auto) 88.9 % Lymphocytes (%) (Auto) 4.6 % Monocytes (%) (Auto) 6.1 % Eosinophils (%) (Auto) 0.1 % Basophils (%) (Auto) 0.3 % Neutrophils # (Auto) 8.3 TH/MM3 Lymphocytes # (Auto) 0.4 TH/MM3 Monocytes # (Auto) 0.6 TH/MM3 Eosinophils # (Auto) 0.0 TH/MM3 Basophils # (Auto) 0.0 TH/MM3 CBC Comment DIFF FINAL Differential Comment Blood Urea Nitrogen 12 MG/DL Creatinine 1.00 MG/DL Random Glucose 99 MG/DL Calcium Level 9.5 MG/DL Sodium Level 139 MEQ/L Potassium Level 3.6 MEQ/L Chloride Level 103 MEQ/L Carbon Dioxide Level 24.7 MEQ/L Anion Gap 11 MEQ/L Estimat Glomerular Filtration Rate 75 ML/MIN Lactic Acid Level 1.8 mmol/L [facility] Medical Decision Making Medical Screen Exam Complete: Yes Emergency Medical Condition: Yes Medical Record Reviewed: Yes Differential Diagnosis Abscess, cellulitis, lymphangitis, sepsis Narrative Course 62-year-old male with draining abscess that is nonfluctuant to the back of his right calf with lymphangitis of the right leg and lymphadenopathy of the right groin. Patient is afebrile and nontoxic-appearing. Denies fever, vomiting. Tetanus updated in the ER. CBC, BMP, blood culture, lactic acid, IV, normal saline bolus, wound culture, clindamycin 600 mg IV, Toradol ordered. Discussed patient with Dr. Oneill he agrees with my plan of care. 1420: CBC, BMP unremarkable other than neutrophil percentage 88.9%. Lactic acid 1.8. Blood cultures pending. Area of cellulitis and lymphangitis marked with a surgical marker. Instructed patient to return to the emergency department in 48 hours for recheck. Clindamycin, ibuprofen prescribed for home. Instructed patient to follow up with primary care provider. Patient verbalizes understanding and agreement with treatment plan. Patient is medically cleared and stable for discharge. Discussed reasons to return to the emergency department. Patient agrees with treatment plan. The patients vital signs are stable and the patient is stable for outpatient follow-up and treatment. Patient discharged home, stable and in no acute distress. Diagnosis Primary Impression: Wound of right lower extremity Qualified Codes: S81.801A - Unspecified open wound, right lower leg, initial encounter Additional Impressions: Cellulitis of right leg Acute lymphangitis of right lower limb Referrals: [facility] Primary Care Physician Patient Instructions: Abscess (ED), Abscess Follow-up (ED), Cellulitis (ED), General Instructions Additional Instructions: Complete full course of antibiotics; take your prescription of clindamycin to [facility] to have it filled if you do not have insurance; I believe the prescription costs around $21 Warm compresses to the affected area Keep area clean and dry Ibuprofen or Tylenol as directed and as needed for pain and inflammation Follow-up with primary care provider Return to emergency department immediately with worsening of symptoms Med/Other Pt SpecificInfo: Prescription(s) given Scripts Ibuprofen (Ibuprofen) 800 Mg Tab 800 MG PO Q6HR Y for PAIN, #20 TAB 0 Refills Prov: Alicia Nesbitt 11/18/17 Clindamycin (Clindamycin) 150 Mg Cap 450 MG PO Q6H for Infection for 10 Days, #120 CAP 0 Refills Prov: Alicia Nesbitt 11/18/17 Disposition: 01 DISCHARGE HOME Condition: Stable Alicia Nesbitt Nov 18, 2017 12:28
[2017-11-18] MEDS ORDERED: CLINDAMYCIN 600 MG/NS PREMIX 50 ML IV ONE (12:30)
[2017-11-18] MEDS ORDERED: KETOROLAC TROMETHAMINE 30 MG/ML (IVP) VIAL IV PUSH ONE (12:30)
[2017-11-18] MEDS ORDERED: TETANUS/DIPHTHERIA TOXOID ADULT 0.5 ML VIAL IM ONE (12:30)
[2017-11-18] MEDS ORDERED: SODIUM CHLORIDE 0.9% FLUSH 10 ML FLUSH IV FLUSH PRN (12:30)
[2017-11-18 13:18] LABS: AUTOMATED NEUTROPHIL # 8.3 TH/MM3 (1.8-7.7); BASOPHIL % 0.3 % (0.0-2.0); EOSINOPHIL % 0.1 % (0.0-4.0); HEMATOCRIT 44.6 % (39.0-51.0); LYMPH % 4.6 % (9.0-44.0); LYMPHOCYTE # 0.4 TH/MM3 (1.0-4.8); MEAN CELL VOLUME 98.3 FL (80.0-100.0); MEAN CORPUSCULAR HGB CONC 33.6 % (32.0-36.0); MEAN PLATELET VOLUME 8.1 FL (7.0-11.0); MONO % 6.1 % (0.0-8.0); MONOCYTE # 0.6 TH/MM3 (0-0.9); NEUT % 88.9 % (16.0-70.0); PLATELET COUNT 282 TH/MM3 (150-450); RED BLOOD COUNT 4.53 MIL/MM3 (4.50-5.90); RED CELL DISTRIBUTION WIDTH 13.1 % (11.6-17.2); WHITE BLOOD COUNT 9.3 TH/MM3 (4.0-11.0)
[2017-11-18 13:37] LABS: BICARBONATE 24.7 MEQ/L (21.0-32.0); CALCIUM 9.5 MG/DL (8.5-10.1)
[2017-11-18] MEDS ORDERED: CLIN150C14 PO (14:16)
[2017-11-18] MEDS ORDERED: IBUP1TAB7 PO (14:16)
== END 2017-11-18 14:33 | disposition home or self-care (01) ==
LOC: NEPD 10:57
DX: S81.801A Unspecified open wound, right lower leg, initial encounter (principal); L03.115 Cellulitis of right lower limb; L03.125 Acute lymphangitis of right lower limb; B95.0 Streptococcus, group A, as the cause of diseases classified elsewhere; B95.61 Methicillin susceptible Staphylococcus aureus infection as the cause of diseases classified elsewhere; Z23 Encounter for immunization; W57.XXXA Bitten or stung by nonvenomous insect and other nonvenomous arthropods, initial encounter; I10 Essential (primary) hypertension; K21.9 Gastro-esophageal reflux disease without esophagitis; E78.00 Pure hypercholesterolemia, unspecified; Z72.0 Tobacco use; Z86.79 Personal history of other diseases of the circulatory system; Z87.39 Personal history of other diseases of the musculoskeletal system and connective tissue
CPT/HCPCS: 80048; 83605; 85025; 86403; 87040; 87070; 87186; 90471; 90714; 96361; 96365; 96375; 99284; J1885; J7030